=== PATIENT | female | born 2000 | race Two or more races ===

== ENCOUNTER 2021-07-19 15:06 | Emergency (ER) | payer OTHER ==
[~2021-07-19] VITALS: Ht 160 cm; Wt 61.2 kg
[2021-07-19] MEDS ORDERED: SINGULAIR10 MG PO (15:13)
[2021-07-19] MEDS ORDERED: XOPENEX HFA15 GM IH (15:13)
[2021-07-19] MEDS ORDERED: MEDROLPACK PO (19:36)
[2021-07-19] MEDS ORDERED: ZITHROMAX500 MG PO (19:36)
== END 2021-07-19 19:43 | disposition home or self-care (01) ==
LOC: ER 15:06
DX: J06.9 Acute upper respiratory infection, unspecified (principal); J45.901 Unspecified asthma with (acute) exacerbation; Z20.822 Contact with and (suspected) exposure to COVID-19

== ENCOUNTER 2021-10-09 14:47 | Emergency (ER) | payer OTHER ==
[~2021-10-09] VITALS: Ht 160 cm; Wt 72.6 kg
[~2021-10-09 14:47] MED LIST: MEDROLPACK PO; SINGULAIR10 MG PO; XOPENEX HFA15 GM IH; ZITHROMAX500 MG PO
[2021-10-09] MEDS ORDERED: DUI500 PO (18:26)
== END 2021-10-09 19:19 | disposition home or self-care (01) ==
LOC: ER 14:47
DX: J03.90 Acute tonsillitis, unspecified (principal); Z88.8 Allergy status to other drugs, medicaments and biological substances; Z87.09 Personal history of other diseases of the respiratory system; Z20.822 Contact with and (suspected) exposure to COVID-19